=== PATIENT | female | born 1950 | race Caucasian/White ===

== ENCOUNTER 2016-12-16 12:29 | Emergency (ER) | payer OTHER ==
[~2016-12-16] VITALS: Ht 170.2 cm; Wt 88.0 kg
[~2016-12-16 12:29] MED LIST: CHLO25CA9 PO; VENL100T PO
[2016-12-16 12:42] VITALS: Ht 170.2 cm; Wt 88.0 kg
[2016-12-16] MEDS ORDERED: IBUPROFEN 800 MG TAB PO ONE (13:00)
[2016-12-16] MEDS ORDERED: IBUP-1542 PO (13:11)
[2016-12-16 13:16] VITALS: BP 140/85; PULSE 99; RESP 17; TEMP 99.5
--- NOTE | 2016-12-16 13:43 | ERD ---
ER Documentation Chief Complaint Date/Time DATE: 12/16/16 TIME: 13:41 Chief Complaint pt bib self for back pain and "alcohol withdrawl, last drink yesterday" HPI Patient is a 66-year-old female with alcohol abuse who presents saying "I want help with detox". She said that her last alcohol drink was yesterday. She says "I want Librium". She also is requesting ibuprofen for her chronic back pain. She feels shaky. Upon review of old medical records as the patient's fifth visit to the ER since November 2015 for alcohol withdrawal. Review of the emergency department information exchange shows multiple visits to [facility] [place] emergency department as well as [facility]. ROS All systems reviewed and are negative except as per history of present illness. Medications Home Meds Active Scripts Ibuprofen* (Motrin*) 600 Mg Tab, 600 MG PO Q6H Y for PAIN AND OR ELEVATED TEMP, #30 TAB Prov:ASHLEY MON MD 12/16/16 Chlordiazepoxide* (Chlordiazepoxide*) 25 Mg Capsule, 10 MG PO BID for wit, #10 CAP Prov:MARIO HUERTA MD 03/14/16 Reported Medications Venlafaxine Hcl* (Venlafaxine Hcl*) Unknown Strength Tablet, 300 MG PO DAILY, TAB 03/15/16 Allergies Allergies: Coded Allergies: Iodinated Contrast Media - Oral and (Verified Allergy, Mild, 12/16/16) PMhx/Soc History of Surgery: Yes (gallbladder removed) Anesthesia Reaction: No Hx Neurological Disorder: No Hx Respiratory Disorders: No Hx Cardiac Disorders: Yes (htn) Hx Psychiatric Problems: Yes (alcoholism) Hx Miscellaneous Medical Probl: No Hx Alcohol Use: Yes (daily x 2 mo; previously sober x 10 yrs) Hx Substance Use: No (history of meth/marijuana use) Hx Tobacco Use: Yes (1 pack/day) Smoking Status: Current every day smoker FmHx Family History: No diabetes Physical Exam Vitals Vital Signs Date Time Temp Pulse Resp B/P Pulse Ox O2 Delivery O2 Flow Rate FiO2 12/16/16 13:16 99.5 99 17 140/85 100 Room Air 12/16/16 12:42 100.0 108 18 140/87 98 Physical Exam Const: No acute distress Head: Atraumatic Eyes: Normal Conjunctiva ENT: Normal External Ears, Nose and Mouth. Neck: Full range of motion..~ No meningismus. Resp: Clear to auscultation bilaterally Cardio: Regular rate and rhythm, no murmurs Abd: Soft, non tender, non distended. Normal bowel sounds Skin: No petechiae or rashes Back: No midline or flank tenderness Ext: No cyanosis, or edema Neur: Awake and alert, no hallucinations, no hand shaking, no signs of acute delirium tremens at this time Psych: Normal Mood and Affect Results 24 hrs Current Medications Medications (Trade) Dose Ordered Sig/Octavio Route PRN Reason Start Time Stop Time Status Last Admin Dose Admin Ibuprofen (Motrin) 800 mg ONCE ONCE PO 12/16/16 13:00 12/16/16 13:01 DC 12/16/16 13:04 Procedures/MDM Patient is a 66-year-old female with alcohol abuse who presents for which she thinks is alcohol withdrawal. At this point I do not believe there is any acute delirium tremens. The patient will be given ibuprofen for her back pain. I would not give her Librium as this is not something I prescribed from the emergency department. However I will give her a list of the local treatment center resources because I do believe that outpatient detox would be a benefit to her. She can return for any worsening symptoms. Her back pain is chronic and I will give her ibuprofen but at this time I doubt cauda equina syndrome, epidural hematoma, or epidural abscess. Departure Diagnosis: Primary Impression: Alcohol withdrawal syndrome Complication of substance-induced condition: uncomplicated Qualified Code: F10.230 - Alcohol withdrawal syndrome, uncomplicated Additional Impression: Back pain Back pain location: low back pain Chronicity: chronic Back pain laterality : unspecified Sciatica presence: unspecified whether sciatica present Qualified Code: M54.5 - Chronic low back pain, unspecified back pain laterality , with sciatica presence unspecified Condition: Fair Patient Instructions: Alcohol Withdrawal Referrals: SAMI GORDON (PCP) Additional Instructions: Call your primary care doctor TOMORROW for an appointment during the next 1-2 days.See the doctor sooner or return here if your condition worsens before your appointment time. ASHLEY MON MD Dec 16, 2016 13:43
== END 2016-12-16 13:17 | disposition home or self-care (01) ==
LOC: E/R 12:29
DX: F10.230 Alcohol dependence with withdrawal, uncomplicated (principal); M54.5 Low back pain; F17.210 Nicotine dependence, cigarettes, uncomplicated; I10 Essential (primary) hypertension
CPT/HCPCS: Z7502; Z7610; 99283